=== PATIENT | female | born 1950 | race Caucasian/White ===

== ENCOUNTER 2020-11-27 07:33 | Emergency (ER) | payer MEDICARE, OTHER ==
[2020-11-27] MEDS ORDERED: Sodium Chloride 0.9% 10 ML Syringe FLUSH PRN (08:08)
[2020-11-27] MEDS ORDERED: Ketorolac 30 MG/ML SDV IVPUSH STA (08:09)
[2020-11-27] MEDS ORDERED: Meclizine 25 MG Tab PO STA (08:09)
[2020-11-27] MEDS ORDERED: Ondansetron 4 MG/2 ML SDV IVPUSH STA (08:09)
[2020-11-27] MEDS ORDERED: Sodium Chloride 0.9% 1,000 ML IV SCH (08:15)
--- NOTE | 2020-11-27 09:36 | EDM.PDOC ---
ED HPI GENERAL MEDICAL PROBLEM - General Chief Complaint: Syncope Stated Complaint: FLU SYMTOMS Time Seen by Provider: 11/27/20 09:50 Source of Information: Reports: Patient History Limitations: Reports: No Limitations - History of Present Illness INITIAL COMMENTS - FREE TEXT/NARRATIVE: Patient presented to the ED because of headache,nausea, dizziness, and weakness hours after she had the Moderna covid vaccine. This morning she had a brief syncopal episode. there is no fever,chills, cough/cold symptoms. Headache Pain Score (Numeric/FACES): 2 - Related Data Allergies Allergy/AdvReac Type Severity Reaction Status Date / Time No Known Allergies Allergy Verified 11/27/20 08:24 Home Meds: Home Meds Escitalopram Oxalate [Lexapro] 10 mg PO DAILY 11/27/20 [History] Meclizine [Antivert] 25 mg PO Q6H PRN #15 tab.chew 11/27/20 [Rx] Ondansetron [Zofran ODT] 4 mg PO Q4H PRN #5 tab.dis 11/27/20 [Rx] Social & Family History - Tobacco Use Tobacco Use Status *Q: Never Tobacco User - Caffeine Use Caffeine Use: Reports: Coffee - Recreational Drug Use Recreational Drug Use: No ED ROS GENERAL - Review of Systems Review Of Systems: See Below Constitutional: Reports: No Symptoms, Weakness HEENT: Reports: No Symptoms Respiratory: Reports: No Symptoms Cardiovascular: Reports: No Symptoms Endocrine: Reports: No Symptoms GI/Abdominal: Reports: Nausea Musculoskeletal: Reports: No Symptoms Skin: Reports: No Symptoms Neurological: Reports: Dizziness, Headache Psychiatric: Reports: No Symptoms Hematologic/Lymphatic: Reports: No Symptoms ED EXAM, GENERAL - Physical Exam Exam: See Below Exam Limited By: No Limitations General Appearance: Alert, No Apparent Distress Eye Exam: Bilateral Eye: PERRL Ears: Normal External Exam, Normal Canal Nose: Normal Inspection, Normal Mucosa, No Blood Throat/Mouth: Normal Inspection, Normal Lips, Normal Teeth, Normal Gums Head: Atraumatic, Normocephalic Neck: Normal Inspection, Supple, Non-Tender, Full Range of Motion Respiratory/Chest: No Respiratory Distress, Lungs Clear, Normal Breath Sounds Cardiovascular: Normal Peripheral Pulses, Regular Rate, Rhythm, No Edema, No Gallop, No JVD, No Murmur GI/Abdominal: Normal Bowel Sounds, Soft, Non-Tender, No Organomegaly Back Exam: Normal Inspection, Full Range of Motion Extremities: Normal Inspection, Normal Range of Motion, Non-Tender Neurological: Alert, Oriented, CN II-XII Intact, Normal Cognition, Normal Gait, Normal Reflexes, No Motor/Sensory Deficits Psychiatric: Normal Affect Skin Exam: Warm Course - Vital Signs Text/Narrative:: Labs/EKG results was reviwed and discussed with patient and her spouse NS 1 L bolus Toradol 30 mg IV x1 Zofran 4 mg IV x1 Meclizine 25 mg po x1 Last Recorded V/S: Last Vital Signs Temp 36.3 C 11/27/20 07:40 Pulse 70 11/27/20 07:40 Resp 22 H 11/27/20 07:40 BP 103/69 11/27/20 07:40 Pulse Ox 100 11/27/20 07:40 - Orders/Labs/Meds Orders: Active Orders 24 hr Category Date Time Status EKG Documentation Completion [RC] ASDIRECTED Care 11/27/20 08:09 Active Sodium Chloride 0.9% [Normal Saline] 1,000 ml Med 11/27/20 08:15 Active IV ASDIRECTED Sodium Chloride 0.9% [Saline Flush] Med 11/27/20 08:08 Active 10 ml FLUSH ASDIRECTED PRN Saline Lock Insert [OM.PC] Routine Oth 11/27/20 08:08 Ordered EKG 12 Lead [EK] Routine Ther 11/27/20 08:08 Ordered Medication Orders Sodium Chloride (Normal Saline) 1,000 mls @ 999 mls/hr IV ASDIRECTED MATHEW Last Admin: 11/27/20 08:47 Dose: 999 mls/hr Documented by: CHRIS Sodium Chloride (Sodium Chloride 0.9% 10 Ml Syringe) 10 ml FLUSH ASDIRECTED PRN PRN Reason: Keep Vein Open Last Admin: 11/27/20 09:06 Dose: 10 ml Documented by: CHRIS Labs: Laboratory Tests 11/27/20 11/27/20 11/27/20 Range/Units 08:35 08:35 08:35 WBC 7.9 (3.0-10.3) x10-3/uL RBC 4.51 (3.60-5.20) x10(6)uL Hgb 13.9 (11.4-15.5) g/dL Hct 41.6 (34.2-48.2) % MCV 92.2 (76.7-100.5) fL MCH 30.9 (23.9-33.9) pg MCHC 33.5 (31.9-34.8) g/dL RDW 13.1 (12.3-16.5) % Plt Count 209 (151-488) x10(3)uL MPV 7.5 (7.1-12.4) fL Neut % (Auto) 89.3 H (30.8-76.2) % Lymph % (Auto) 4.1 L (18.4-52.1) % [place] % (Auto) 6.0 (4.4-15.7) % Eos % (Auto) 0.3 L (0.6-8.1) % Baso % (Auto) 0.3 (0.2-1.5) % Neut # (Auto) 7.1 H (1.5-6.3) x10-3/uL Lymph # (Auto) 0.3 L (1.0-4.4) x10-3/uL [place] # (Auto) 0.5 (0.3-1.0) x10-3/uL Eos # (Auto) 0.0 (0.0-0.8) x10-3/uL Baso # (Auto) 0.0 (0.0-0.1) x10-3/uL Sodium 140 (135-145) mmol/L Potassium 4.0 (3.5-5.3) mmol/L Chloride 103 (100-110) mmol/L Carbon Dioxide 28 (21-32) mmol/L BUN 18 (7-18) mg/dL Creatinine 0.9 (0.55-1.02) mg/dL Est Cr Clr Drug Dosing 50.94 mL/min Estimated GFR (MDRD) > 60 (>60) BUN/Creatinine Ratio 20.0 (9-20) Glucose 123 H (80-116) mg/dL Calcium 8.2 L (8.6-10.2) mg/dL Total Bilirubin 0.7 (0.1-1.3) mg/dL AST 19 (5-25) IU/L ALT 32 (12-36) U/L Alkaline Phosphatase 46 L (56-112) IU/L Troponin I 5.9 (4.0-60.3) pg/mL Total Protein 6.9 (6.0-8.0) g/dL Albumin 3.6 (3.2-4.6) g/dL Globulin 3.3 g/dL Albumin/Globulin Ratio 1.1 Meds: Medications Generic Name Dose Route Start Last Admin Trade Name Wong PRN Reason Stop Dose Admin Sodium Chloride 1,000 mls @ 999 mls/hr 11/27/20 08:15 11/27/20 08:47 Normal Saline IV 999 mls/hr ASDIRECTED MATHEW Administration Sodium Chloride 10 ml 11/27/20 08:08 11/27/20 09:06 Sodium Chloride 0.9% 10 Ml Syringe FLUSH 10 ml ASDIRECTED PRN Administration Keep Vein Open Discontinued Medications Generic Name Dose Route Start Last Admin Trade Name Wong PRN Reason Stop Dose Admin Ketorolac Tromethamine 30 mg 11/27/20 08:09 11/27/20 08:51 Ketorolac 30 Mg/Ml Sdv IVPUSH 11/27/20 08:10 30 mg NOW STA Administration Meclizine HCl 25 mg 11/27/20 08:09 11/27/20 09:06 Meclizine 25 Mg Tab PO 11/27/20 08:10 25 mg NOW STA Administration Ondansetron HCl 4 mg 11/27/20 08:09 11/27/20 08:48 Ondansetron 4 Mg/2 Ml Sdv IVPUSH 11/27/20 08:10 4 mg NOW STA Administration Departure - Departure Time of Disposition: 09:35 Disposition: Home, Self-Care 01 Condition: Good Clinical Impression: Vasovagal syncope, Headache - Discharge Information Prescriptions: Meclizine [Antivert] 25 mg PO Q6H PRN #15 tab.chew PRN Reason: Dizziness Ondansetron [Zofran ODT] 4 mg PO Q4H PRN #5 tab.dis PRN Reason: Nausea Instructions: Syncope, [id number] Referrals: Carrie Gomes [employer] [Primary Care Provider] - Forms: ED Department Discharge Additional Instructions: Please read discharge instructions on vasovagal syncope Rest for the day Increase oral fluids Meclizine 25 mg chew and swallow every 6 hours as needed for pain Zofran ODT 4 mg every 4 hours as needed for nausea/vomiting Take ibuprofen 800 mg with tylenol 1000 mg every 8 hours as needed for ache/pain Follow up as needed Sepsis Event Note (ED) - Evaluation Sepsis Screening Result: No Definite Risk - Focused Exam Vital Signs: Vital Signs Temp Pulse Resp BP Pulse Ox 11/27/20 07:40 36.3 C 70 22 H 103/69 100 - My Orders Last 24 Hours: My Active Orders 11/27/20 08:08 Sodium Chloride 0.9% [Saline Flush] 10 ml FLUSH ASDIRECTED PRN Saline Lock Insert [OM.PC] Routine EKG 12 Lead [EK] Routine 11/27/20 08:09 EKG Documentation Completion [RC] ASDIRECTED 11/27/20 08:15 Sodium Chloride 0.9% [Normal Saline] 1,000 ml IV ASDIRECTED - Assessment/Plan Last 24 Hours: My Active Orders 11/27/20 08:08 Sodium Chloride 0.9% [Saline Flush] 10 ml FLUSH ASDIRECTED PRN Saline Lock Insert [OM.PC] Routine EKG 12 Lead [EK] Routine 11/27/20 08:09 EKG Documentation Completion [RC] ASDIRECTED 11/27/20 08:15 Sodium Chloride 0.9% [Normal Saline] 1,000 ml IV ASDIRECTED
== END 2020-11-27 10:20 | disposition home or self-care (01) ==
LOC: FB.ED 07:33
DX: R55 Syncope and collapse (principal); R51.9 Headache, unspecified; R53.1 Weakness
CPT/HCPCS: 36415; 80053; 84484; 85025; 93005; 96374; 96375; 99284; A9270; J1885; J2405; J7030